=== PATIENT | male | born 1965 | race Hispanic/Latino ===

== ENCOUNTER 2021-11-22 11:00 | Day surgery (SDC) | payer MEDICARE ==
[2021-11-16 14:10] LABS: Hematocrit 40.8 % (35.5-45.6); Hemoglobin 13.6 gm/dl (11.8-15.2); Mean Corpuscular HGB Conc 33 % (32-34); Mean Corpuscular Volume 96 fl (84-94); Platelet Count 415 K/mm3 (140-440); Red Blood Count 4.24 M/mm3 (3.65-5.03); Red Cell Distribution Width 13.9 % (13.2-15.2)
--- NOTE | 2021-11-16 14:26 | Anesthesia Consultation ---
Anesthesia Consult and Med Hx Date of service: 11/22/21 - Airway Anesthetic Teeth Evaluation: Dentures, Edentulous ROM Head & Neck: Adequate (Had cervical fusions; good ROM) Mental/Hyoid Distance: Adequate Mallampati Class: Class III Intubation Access Assessment: Probably Good - Pre-Operative Health Status ASA Pre-Surgery Classification: ASA3 Proposed Anesthetic Plan: General Nerve Block: TAP - Pulmonary Hx Smoking: Yes Hx Respiratory Symptoms: Yes SOB: Yes COPD: Yes (USES O2 3L/MIN) Home Oxygen Therapy: Yes Hx Pneumonia: Yes Hx Sleep Apnea: Yes - Cardiovascular System Hx Hypertension: Yes Hx Heart Attack/AMI: No (Pt reports negative NST two years ago) - Central Nervous System Hx Seizures: Yes CVA: Yes (TIA 2011) Hx Psychiatric Problems: Yes (Chronic pain; depression) - Gastrointestinal Hx Gastroesophageal Reflux Disease: Yes (Occasional) - Endocrine Hx Liver Disease: Yes (Fatty liver) Hx Non-Insulin Dependent Diabetes: Yes Hx Thyroid Disease: Yes Hx Hypothyroidism: Yes - Hematic Hx Anemia: No - Other Systems Hx Alcohol Use: No Hx Substance Use: No Hx Cancer: No - Additional Comments Anesthesia Medical History Comments: Lupus. Recently had left shoulder surgery and is still in a sling. Medical records on chart-reviewed
[2021-11-16 14:33] LABS: Albumin 4.5 g/dL (3.9-5)
[~2021-11-22 11:00] MED LIST: ACETAMINOPHEN 500 MG TAB PO SCH; CELECOXIB 200 MG CAP PO SCH; LACTATED RINGERS 1,000 ML IV SCH; MAGNESIUM OXIDE 400 MG TAB PO SCH; MIDAZOLAM 2 MG/2 ML INJ IV NR; fentaNYL 100 MCG/2 ML INJ IV SCH
[2021-11-22] MEDS ORDERED: dexAMETHasone 4 MG/ML VIAL ONE (11:33)
[2021-11-22] MEDS ORDERED: BUPIVACAINE-EPINEPHRINE/PF 0.25%-1:200,000 (30 ML) VIAL INFILTRATI ONE ×2 (11:33→12:55)
[2021-11-22] MEDS ORDERED: HYDROmorphone 0.5 MG/0.5 ML INJ IV PRN ×2 (12:00→15:00)
[2021-11-22] MEDS ORDERED: oxyCODONE /ACETAMINOPHEN 5-325MG TAB PO PRN ×2 (12:00→15:00)
[2021-11-22] MEDS ORDERED: ONDANSETRON 4 MG/2 ML INJ IV PRN (12:00)
[2021-11-22] MEDS ORDERED: ceFAZolin/STERILE WATER 2 GM/20 ML SYRINGE IV SCH (12:40)
[2021-11-22] MEDS ORDERED: HEPARIN 5,000 UNIT/1 ML VIAL SUB-Q SCH (12:40)
[2021-11-22] MEDS ORDERED: HEPARIN 5,000 UNIT/1 ML VIAL ONE (12:41)
[2021-11-22] MEDS ORDERED: ceFAZolin/Water 2 GM/20 ML 2 GM/20 ML SYRINGE IV ONE (12:42)
[2021-11-22] MEDS ORDERED: fentaNYL 100 MCG/2 ML INJ ONE (12:56)
[2021-11-22] MEDS ORDERED: propofoL 200 MG/20 ML VIAL IV ONE (12:56)
[2021-11-22] MEDS ORDERED: LIDOCAINE MPF (2%) 20 MG/1 ML VIAL 5 ML ONE (12:57)
[2021-11-22] MEDS ORDERED: ROCURONIUM 50 MG/5 ML INJ IV ONE ×2 (12:59→13:33)
[2021-11-22] MEDS ORDERED: ONDANSETRON 4 MG/2 ML INJ ONE (13:33)
[2021-11-22] MEDS ORDERED: dexAMETHasone 20 MG/5 ML VIAL ONE (13:33)
[2021-11-22] MEDS ORDERED: SODIUM CHLORIDE 0.9% IRR 1,000 ML BOTTLE IR ONE (13:50)
--- NOTE | 2021-11-22 13:52 | Anesthesia Day of Surgery ---
Anesthesia Day of Surgery - Day of Surgery Patient Examined: Yes Patient H&P Reviewed: Yes Patient is NPO: Yes
[2021-11-22] MEDS ORDERED: NEOSTIGMINE 10MG/10 ML INJ MDV ONE (14:09)
[2021-11-22] MEDS ORDERED: GLYCOPYRROLATE 0.4 MG/2 ML INJ ONE (14:09)
--- NOTE | 2021-11-22 14:51 | Procedure Note ---
Date of procedure: 11/22/21 Pre-op diagnosis: Recurrent ventral hernia Post-op diagnosis: same Procedure: Open repair of recurrent ventral hernia with mesh Description of procedure: Pt was placed supine on the OR table. GETA was administered. Abdomen was prepped and draped. A small incision was made over the palpable hernia. The hernia sac was immediately identified and was dissected free of SQ fat down to it's fascial margin. The sac was entered and contained incarcerated omentum. The omentum was freed from the sac and was reduced back into the peritoneal cavity. A medium piece of Ventralex mesh was appropriately positioned deep to the fascia. The mesh was simultaneously secured to the fascia and the fascia approximated with several interrupted sutures of 0-Ethibond. SQ tissue was irrigated with warm water. SQ tissue was approximated with a running 3-0 Vicryl. Skin was approximated with a running subcuticular 4-0 Monocryl. Skin glue was applied. Pt was extubated in the OR. Pt tolerated the procedure well. Pt was taken to PACU in stable condition. Anesthesia: GETA Surgeon: DARIAN AMARO Estimated blood loss: minimal Pathology: none Specimen disposition: discarded Condition: stable Disposition: PACU
--- NOTE | 2021-11-22 16:19 | Post Anesthesia Evaluation ---
- Post Anesthesia Evaluation Patient Participated: Yes Airway Patent: Yes Stable Respiratory Function: Yes Nausea/Vomiting: No Temp > 96.8F: Yes Pain Manageable: Yes Adequeate Hydration: Yes Anesthesia Complications: No
[2021-11-22 16:26] VITALS: BP 126/86
== END 2021-11-22 15:43 | disposition home or self-care (01) ==
LOC: OR 11:00
PROVIDERS: ATTEND Surgery
DX: K43.0 Incisional hernia with obstruction, without gangrene (principal); I10 Essential (primary) hypertension; J44.9 Chronic obstructive pulmonary disease, unspecified; G47.30 Sleep apnea, unspecified; K21.9 Gastro-esophageal reflux disease without esophagitis; M19.90 Unspecified osteoarthritis, unspecified site; E11.9 Type 2 diabetes mellitus without complications; E03.9 Hypothyroidism, unspecified; F32.9 Major depressive disorder, single episode, unspecified; Z88.8 Allergy status to other drugs, medicaments and biological substances; Z20.822 Contact with and (suspected) exposure to COVID-19; Z91.041 Radiographic dye allergy status; Z79.899 Other long term (current) drug therapy; Z79.84 Long term (current) use of oral hypoglycemic drugs; Z90.49 Acquired absence of other specified parts of digestive tract; Z96.651 Presence of right artificial knee joint; Z98.890 Other specified postprocedural states
CPT/HCPCS: 36415; 49566; 49568; 64488; 80053; 82962; 85027; C1781; J0690; J1100; J1644; J1815; J2250; J2405; J2704; J2710; J3010; J3490; J7120; U0003; 64450

== ENCOUNTER 2022-02-01 06:07 | Inpatient (IN) | payer MEDICARE ==
[~2022-02-01 06:07] MED LIST changes: -ACETAMINOPHEN 500 MG TAB PO SCH; -CELECOXIB 200 MG CAP PO SCH; -MAGNESIUM OXIDE 400 MG TAB PO SCH; +MELOXICAM 7.5 MG TAB PO SCH; +PREGABALIN 25 MG CAP PO SCH; +ceFAZolin/STERILE WATER 2 GM/20 ML SYRINGE IV SCH; +ceFAZolin/Water 2 GM/20 ML 2 GM/20 ML SYRINGE IV ONE; +fentaNYL 100 MCG/2 ML INJ IV PRN; -fentaNYL 100 MCG/2 ML INJ IV SCH
--- NOTE | 2022-02-01 07:28 | Anesthesia Consultation ---
Anesthesia Consult and Med Hx Date of service: 02/01/22 - Airway Anesthetic Teeth Evaluation: Dentures ROM Head & Neck: Adequate Mental/Hyoid Distance: Adequate Mallampati Class: Class III Intubation Access Assessment: Probably Good (previous easy intubations) - Pulmonary Exam CTA: Yes - Cardiac Exam Cardiac Exam: RRR - Pre-Operative Health Status ASA Pre-Surgery Classification: ASA4 Proposed Anesthetic Plan: General (discussed GA vs neuraxial; patient requests GA) Nerve Block: adductor canal - Pulmonary Hx Smoking: Yes (quit 1yr) SOB: Yes (chronic PALACIOS; unchanges) COPD: Yes Home Oxygen Therapy: Yes (3L/min w/ activity) Hx Sleep Apnea: Yes (+ CPAP) - Cardiovascular System Hx Hypertension: Yes Hx Heart Attack/AMI: No Hx Percutaneous Transluminal Coronary Angioplasty (PTCA): No - Central Nervous System CVA: Yes (TIA 2011) Hx Back Pain: Yes (chronic opioid use for neck and back pain) Hx Psychiatric Problems: Yes (depression) - Endocrine Hx Renal Disease: No Hx Liver Disease: No Hx Non-Insulin Dependent Diabetes: Yes Hx Hypothyroidism: Yes - Hematic Hx Anemia: No - Additional Comments Anesthesia Medical History Comments: No hx anesthetic complications. Preop medical and pulmonary evals on chart reviewed. H/H 13/40, plt 300, normal renal function.
[2022-02-01] MEDS ORDERED: ONDANSETRON 4 MG/2 ML INJ IV PRN ×2 (07:29→09:00)
--- NOTE | 2022-02-01 07:29 | Anesthesia Day of Surgery ---
Anesthesia Day of Surgery - Day of Surgery Patient Examined: Yes Patient H&P Reviewed: Yes Patient is NPO: Yes
[2022-02-01] MEDS ORDERED: dexAMETHasone 4 MG/ML VIAL ONE (07:30)
[2022-02-01] MEDS ORDERED: BUPIVACAINE-EPINEPHRINE/PF 0.25%-1:200,000 (30 ML) VIAL INFILTRATI ONE (07:30)
[2022-02-01] MEDS ORDERED: ePHEDrine SULFATE 50 MG/1 ML INJ ONE (07:31)
[2022-02-01] MEDS ORDERED: HYDROmorphone 1 MG/1 ML INJ ONE (07:31)
[2022-02-01] MEDS ORDERED: dexAMETHasone 20 MG/5 ML VIAL ONE (07:31)
[2022-02-01] MEDS ORDERED: ROCURONIUM 50 MG/5 ML INJ IV ONE (07:31)
[2022-02-01] MEDS ORDERED: propofoL 200 MG/20 ML VIAL IV ONE ×2 (07:31→09:22)
[2022-02-01] MEDS ORDERED: SUCCINYLCHOLINE CHLORIDE 200 MG/10 ML INJ MDV ONE (07:31)
[2022-02-01] MEDS ORDERED: TRANEXAMIC ACID 1,000 MG/10 ML ONE (07:43)
[2022-02-01] MEDS ORDERED: BUPIVACAINE/PF (0.5%) 5 MG/1 ML 30 ML VIAL INFILTRATI ONE ×2 (07:43→09:30)
[2022-02-01] MEDS ORDERED: methylPREDNISolone ACETATE 40 MG/1 ML INJ ONE (07:43)
[2022-02-01] MEDS ORDERED: NEOMY 40 MG/POLYMYXIN B 200,000 UNITS/ML (GU) AMPULE IR ONE ×2 (07:44→09:43)
[2022-02-01] MEDS ORDERED: MORPHINE 10 MG/1 ML INJ ONE (07:44)
[2022-02-01] MEDS ORDERED: SODIUM CHLORIDE 0.9% 100 ML ONE (07:44)
[2022-02-01] MEDS ORDERED: NALOXONE 0.4 MG/1 ML INJ IV PRN (08:00)
[2022-02-01] MEDS ORDERED: VANCOMYCIN 1000 MG INJ ONE (08:01)
[2022-02-01] MEDS ORDERED: SODIUM CHLORIDE 0.9% 50 ML ONE (08:01)
[2022-02-01] MEDS ORDERED: fentaNYL 100 MCG/2 ML INJ ONE ×2 (08:59→11:18)
[2022-02-01] MEDS ORDERED: SODIUM CHLORIDE 0.9% 1000 ML 1,000 ML IV SCH (09:00)
[2022-02-01] MEDS ORDERED: oxyCODONE 5 MG TAB PO PRN ×2 (09:00)
[2022-02-01] MEDS ORDERED: SODIUM CHLORIDE P/F VIAL 10 ML 0 ML ONE (09:04)
[2022-02-01] MEDS ORDERED: SODIUM CHLORIDE 0.9% IRR 1,500 ML BOTTLE IR ONE (09:27)
[2022-02-01] MEDS ORDERED: VANCOMYCIN 1,000 MG/20 ML IV ONE (09:28)
[2022-02-01] MEDS ORDERED: SODIUM CHLORIDE 0.9% 500 ML IVPB IV ONE (09:29)
[2022-02-01] MEDS ORDERED: methylPREDNISolone ACETATE 40 MG/1 ML INJ INTRA-ARTI ONE (09:31)
[2022-02-01] MEDS ORDERED: MORPHINE 10 MG/1 ML INJ IM ONE (09:32)
[2022-02-01] MEDS ORDERED: SODIUM CHLORIDE 0.9% IRRIG SOLN 2000 ML IR ONE (09:42)
[2022-02-01] MEDS ORDERED: MULTIVITAMINS ,THERAPEUTIC TAB PO SCH (10:00)
--- NOTE | 2022-02-01 10:48 | Post Operative Note ---
Date of procedure: 02/01/22 Pre-op diagnosis: Left knee osteoarthritis Post-op diagnosis: same Findings: left knee osteoarthritis Procedure: left total knee replacement Anesthesia: GETA Surgeon: PRINCESS JASSO [employer] Research: [employer] Estimated blood loss: minimal Pathology: none Condition: stable Disposition: PACU
--- NOTE | 2022-02-01 10:55 | Operative Report ---
Operative Report Operative Report: Patient Name: Meño So Date of : 1965 Date of Surgery: 02/01/2022 Pre-Operative Diagnosis: Left knee osteoarthritis Post-Operative Diagnosis: Left knee osteoarthritis Procedure: Left total knee replacement Surgeon: Jona Mayfield DO Assistants: Marce Chacko PA-C EBL: 50cc Complications: None Anesthesia: GETA, plus regional nerve block for post-operative pain control Implants: Medacta GMK Sphere size 4+ femur, size 4 tibia, 11 mm CS polyethylene insert, size 2 patella Tourniquet Time: 79 minutes Indications: This is a 56-year-old male who presented with worsening left knee pain over the last 2-3 years. Pain is worse with weight bearing. Patient had difficulty ambulating, using stairs because of the pain. Patient had tried nonoperative management including physical therapy/home exercises, joint injections, anti-inflammatory medications, activity modifications, ambulating with assistive devices without any lasting pain relief. Patient elected to undergo left total knee replacement. Patient's past medical history significant for COPD (on home oxygen), chronic pain (on oxycodone 20mg Q6 hours, MS Contin 60mg Q12 hours), hypertension. Patient also has a history of right medial unicondylar knee arthroplasty. The patient was met in the preoperative holding area where the risk, benefits, alternatives to surgery were explained to the patient in detail. Risks include but are not limited to infection, bleeding, neurovascular injury, soft tissue injury, infection, need for further surgery, need for revision surgery, need for blood transfusion, fracture, dislocation, pain, stiffness, loss of limb, loss of life. Informed consent was obtained after all questions were thoroughly answered. Procedure: Patient was placed supine on the operating room table and all bony prominences were well-padded. The left lower extremity was prepped and draped in the usual sterile fashion. A timeout was performed by all members of the operating room team. An Esmarch bandage was used to wrap the left lower extremity and the tourniquet was inflated to 250 mmHg. A midline incision was made over the left knee. Sharp dissection was used to go through the skin and the subcutaneous fat. Medial and lateral fasciocutaneous flaps were then elevated. Using electrocautery a medial parapatellar arthrotomy was then performed. Upon inspection of the knee joint there was severe osteoarthritis in the medial, lateral and patellofemoral compartments. An anteromedial release was performed on the proximal tibia anterior to the midsagittal plane. The ACL and the PCL as well as the meniscal remnants were then removed. An opening reamer was then used to open up the distal femoral canal. An intramedullary aubrie was placed approximately 10 cm up the femoral canal. The distal cutting jig and block were then secured to the distal femur. Using an oscillating saw the distal femoral resection was then performed. Using calipers we measured the thickness of the cut distal medial and lateral femoral condyles. Taking into account cartilage loss and the saw kerf we made sure that the amount of resection equaled the thickness of our implant. The distal cutting block was removed. A femoral sizer was used to measure the size of the femoral implant. Once we had the ap propriate size, we secured the 4-in-1 cutting block to the distal femur using 2 bone screws. We then made our medial and lateral posterior femoral condylar cuts. Again we used a caliper to measure the thickness of our cuts while taking into account cartilage loss and saw kerf, thickness equaled that of the implant. Next, using the oscillating saw to make the anterior femoral cut as well as the anterior and posterior chamfer cuts. Next we turned our attention to the proximal tibia. We then secured the extramedullary tibial cutting jig to the leg. We then matched the alatna slope of the proximal tibia with the guide. We also made sure that the tibial cutting guide was parallel to the articular surface taking into account any cartilage wear and bone loss. Using the 8 mm stylus at the base of the tibial spines on the medial and lateral side we then adjusted the tibial guide to the proper resection depth. We secured the proximal tibial cutting jig to the proximal tibial bone using 3 pins. An oscillating saw was then used to make our proximal tibial resection. Next using a laminar plier worker the knee joint was opened up in 90 degrees of flexion. Using a 1 inch curved osteotome, the posterior osteophytes were removed from both the posterior medial distal femur as well as posterior lateral distal femur. The meniscal remnants were then removed. Next the tibia was anteriorly subluxed and a size 4 tibial guide was then placed in the appropriate amount of rotation parallel to the rotational axis of the tibia of the alatna knee. Tibial guide was secured to the proximal tibia using 2 pins. The tibia was then drilled and punched in the proper rotation. Trial components were then placed on the tibia as well as the femur. The knee was taken through the full range of motion and found to be stable. The knee was able to be flexed to 135 degrees and extension to 0 degrees. There is no varus or valgus laxity with the knee in full extension. The knee was flexed to 90 de grees and again varus and valgus stress was applied. There was no gapping of the medial side with the knee 90 degrees of flexion, the lateral side had approximately 3 mm of gapping which was consistent with a kinematics of the alatna knee joint. The patella was also tracking well within the trochlear groove with no lateral tilt or subluxation. The patella was then everted and cut down to 14 mm using the patellar cutting guide. 3 holes were drilled into the patella and the trial button was placed. Again the knee was taken through the full range of motion and was found to have good patella tracking. At this point we were satisfied with the overall range of motion the stability of the patella tracking as well as the knee. All trials were then removed. The real components were opened. The knee was copiously irrigated with antibiotic saline and then dried. A local anesthetic cocktail was then injected into the posterior capsule as well as the surrounding deep tissues of the knee joint. 2 bags of cement were mixed. Once the cement was in a doughy state the real components were cemented into place starting with the tibia followed by the femur and then the patella. All excess cement was then removed using curettes from around the implants. Once the cement had completely hardened the knee was irrigated again with diluted Betadine mixed with normal saline. The knee was then copiously irrigated with normal saline using pulsatile lavage. The tourniquet was let down. There was no active bleeding. Electrocautery was used throughout the case to maintain meticulous hemostasis. The arthrotomy was then closed in flexion in a watertight fashion using #1 Vicryl suture in an interrupted fashion. The arthrotomy was then reinforced with a #1 stratafix PDS suture. The deep fascial layer was closed with 0 Vicryl. The subcutaneous layers were closed with 2-0 Vicryl and the subcuticular layer was closed with 3- 0 Monocryl. The wound was then covered with an occlusive dressing. The operative lower extremity was wrapped in an Isaac wrap from the foot all the way up to the proximal thigh. The sponge and needle count were correct in the case. The patient was then awakened by the anesthesia team and taken to the recovery room in stable condition. The patient's total knee arthroplasty was performed using a calipered kinematically aligned technique.
[2022-02-01] MEDS: HYDROmorphone 0.5 MG/0.5 ML INJ IV PRN ×2 (11:49→12:15)
--- NOTE | 2022-02-01 11:54 | XRay Report ---
LEFT KNEE 2 VIEWS INDICATION / CLINICAL INFORMATION: Status post left total knee replacement. COMPARISON: None available. FINDINGS: There is a knee prosthesis with postsurgical gas in the soft tissues. There is no evidence of acute f racture or subluxation. IMPRESSION: No complication of surgery is seen. Signer Name: Sen Gonzalez MD Signed: 02/01/2022 11:50 AM Workstation Name: [id number]
[2022-02-01] MEDS ORDERED: HYDROmorphone 0.5 MG/0.5 ML INJ IV NR (12:25)
[2022-02-01] MEDS: KETOROLAC 30 MG/1 ML INJ IV SCH (15:28)
[2022-02-01] MEDS: ceFAZolin/NS 1 GM/50 ML 1 GM/50 ML BAG IV SCH (17:16)
[2022-02-01] MEDS: MORPHINE 4 MG/1 ML INJ IV PRN ×2 (17:17→21:44)
[2022-02-01] MEDS: ACETAMINOPHEN 325 MG TAB PO SCH (17:17)
[2022-02-01] MEDS: DOCUSATE SODIUM 100 MG CAP PO SCH (21:44)
[2022-02-02] MEDS: ACETAMINOPHEN 325 MG TAB PO SCH ×4 (00:27→12:03)
[2022-02-02] MEDS: KETOROLAC 30 MG/1 ML INJ IV SCH (00:33)
[2022-02-02] MEDS ORDERED: KETOROLAC 30 MG/1 ML INJ IV SCH (01:30)
[2022-02-02] MEDS: ceFAZolin/NS 1 GM/50 ML 1 GM/50 ML BAG IV SCH (01:59)
[2022-02-02] MEDS: MORPHINE 4 MG/1 ML INJ IV PRN ×3 (02:00→12:57)
[2022-02-02] MEDS ORDERED: oxyCODONE ER 20 MG TAB PO SCH (06:00)
[2022-02-02 06:35] LABS: Hematocrit 34.4 % (35.5-45.6); Hemoglobin 11.6 gm/dl (11.8-15.2)
[2022-02-02 07:01] LABS: BUN/Creatinine Ratio 14; Blood Urea Nitrogen 15 mg/dL (9-20); Calcium 8.5 mg/dL (8.4-10.2); Hemolysis Index 5
[2022-02-02] MEDS ORDERED: ALBUTEROL 8.5 GM MDI INHALATION IH PRN (08:59)
--- NOTE | 2022-02-02 08:59 | Consultation ---
History of Present Illness - Reason for Consult Consult date: 02/02/22 Medical management Requesting physician: PRINCESS JASSO - History of Present Illness S/p left TKA. Postop patient doing well. No complications. No shortness of breath. No chest pain. No fever. Past History Past Medical History: COPD, diabetes, hypertension, hyperlipidemia, hypothyroidism, other (Chronic pain, generalized anxiety disorder, BPH) Past Surgical History: total knee replacement (Left) Social history: lives with family, full code Family history: diabetes, hypertension Medications and Allergies Allergies Allergy/AdvReac Type Severity Reaction Status Date / Time droperidol Allergy Seizure Verified 01/31/22 12:50 nalbuphine [From Nubain] Allergy Seizure Verified 11/10/21 17:42 promethazine [From Phenergan] Allergy Seizure Verified 11/10/21 17:42 tramadol Allergy Itching Verified 01/31/22 12:50 IVP DYE AdvReac Rash Uncoded 01/31/22 12:50 SILK TAPE AdvReac BLISTERS Uncoded 01/31/22 12:50 Home Medications Medication Instructions Recorded Confirmed Last Taken Type ALPRAZolam [Xanax TAB] 2 mg PO TID 11/10/21 02/01/22 02/01/22 05:00 History AtorvaSTATin [Lipitor] 20 mg PO QHS 11/10/21 02/01/22 01/31/22 21:00 History Fenofibrate [Tricor] 145 mg PO QDAY 11/10/21 02/01/22 01/31/22 09:00 History Levothyroxine [Synthroid] 150 mcg PO QAM 11/10/21 02/01/22 01/31/22 09:00 History Metformin HCl [metFORMIN] 1,000 mg PO BID 11/10/21 02/01/22 01/31/22 18:00 H istory Mirtazapine [Remeron 45mg TAB] 45 mg PO HS 11/10/21 02/01/22 01/31/22 21:00 History Morphine ER [Ms Contin ER] 120 mg PO BID 11/10/21 02/01/22 02/01/22 04:00 History Oxycodone HCl [oxyCODONE] 20 mg PO Q3H PRN 11/10/21 02/01/22 02/01/22 04:00 History Oxycodone HCl/Acetaminophen 1 each PO Q3HR PRN 11/10/21 01/31/22 Unknown History [Percocet 10/325 mg] Pantoprazole [Protonix] 40 mg PO QDAY 11/10/21 02/01/22 01/31/22 21:00 History Tamsulosin [Flomax] 0.4 mg PO QDAY 11/10/21 02/01/22 01/31/22 21:00 History Temazepam [Restoril] 15 mg PO QHS 11/10/21 02/01/22 01/31/22 21:00 History Varenicline (Nf) [Chantix (Nf)] 1 mg PO BID 11/10/21 02/01/22 01/31/22 21:00 History lisinopriL [Lisinopril] 20 mg PO DAILY 11/10/21 02/01/22 01/31/22 09:00 History risperiDONE [RisperDAL] 2 mg PO HS 11/10/21 02/01/22 01/31/22 21:00 History traZODone [Desyrel] 150 mg PO QHS 11/10/21 02/01/22 01/31/22 21:00 History Umeclidinium Brm/Vilanterol Tr 1 puff IH DAILY 11/16/21 02/01/22 02/01/22 04:00 History [Anoro Ellipta 62.5-25 Mcg INH] Albuterol Sulfate [Proventil Hfa] 2 puff IH PRN PRN 01/31/22 01/31/22 Unknown History Aspirin [Vazalore] 325 mg PO BID 01/31/22 02/01/22 01/25/22 09:00 History tiZANidine [Zanaflex 4mg TAB] 4 mg PO QID 01/31/22 02/01/22 01/31/22 21:00 History Active Meds: Active Medications Acetaminophen (Acetaminophen 325 Mg Tab) 650 mg PO Q6H [facility] Last Admin: 02/02/22 05:07 Dose: 650 mg Docusate Sodium (Docusate Sodium 100 Mg Cap) 100 mg PO BID [facility] Last Admin: 02/01/22 21:44 Dose: 100 mg Enoxaparin Sodium (Enoxaparin 40 Mg/0.4 Ml Inj) 40 mg SUB-Q QDAY [facility] Sodium Chloride (Nacl 0.9% 1000 Ml) 1,000 mls @ 75 mls/hr IV DIRECT [facility] Last Admin: 02/01/22 15:28 Dose: 75 mls/hr Morphine Sulfate (Morphine 4 Mg/1 Ml Inj) 4 mg IV Q4H PRN PRN Reason: Pain , Severe (7-10) Last Admin: 02/02/22 06:48 Dose: 4 mg Multivitamins (Multivitamins ,Therapeutic Tab) 1 each PO QDAY [facility] Naloxone HCl (Naloxone 0.4 Mg/1 Ml Inj) 0.1 mg IV Q2MIN PRN PRN Reason: Res Rate </= 8 or 02 SAT < 92% Ondansetron HCl (Ondansetron 4 Mg/2 Ml Inj) 4 mg IV Q8H PRN PRN Reason: Nausea And Vomiting Oxycodone HCl (Oxycodone Er 20 Mg Tab) 60 mg PO Q12H [facility] Last Admin: 02/02/22 05:43 Dose: 60 mg Oxycodone HCl (Oxycodone 5 Mg Tab) 10 mg PO Q4H PRN PRN Reason: Pain, Moderate (4-6) Oxycodone HCl (Oxycodone 5 Mg Tab) 20 mg PO Q4H PRN PRN Reason: Pain , Severe (7-10) Sodium Chloride (Sodium Chloride 0.9% 10 Ml Flush Syringe) 10 ml IV PRN PRN PRN Reason: LINE FLUSH Review of Systems All systems: negative Exam - Constitutional Vitals: Temp Pulse Resp BP Pulse Ox 98.8 F 82 18 142/88 96 02/02/22 05:00 02/02/22 05:00 02/02/22 05:00 02/02/22 05:00 02/02/22 08:37 General appearance: Present: no acute distress, well-nourished - EENT Eyes: Present: PERRL ENT: hearing intact, clear oral mucosa - Neck Neck: Present: supple, normal ROM - Respiratory Respiratory effort: normal Respiratory: bilateral: CTA - Cardiovascular Heart rate: 78 Rhythm: regular Heart Sounds: Present: S1 & S2. Absent: rub, click - Extremities Extremities: pulses symmetrical, No edema Peripheral Pulses: within normal limits - Abdominal General gastrointestinal: Present: soft, non-tender, non-distended, normal bowel sounds Male genitourinary: Present: normal - Integumentary Integumentary: Present: clear, warm, dry - Musculoskeletal Musculoskeletal: gait normal, strength equal bilaterally - Psychiatric Psychiatric: appropriate mood/affect, intact judgment & insight - Neurologic Neurologic: CNII-XII intact, moves all extremities Results - Labs CBC & Chem 7: 02/02/22 05:53 02/02/22 05:53 Labs: Abnormal lab results 02/01/22 02/01/22 02/01/22 Range/Units 11:45 16:32 21:41 Hgb (11.8-15.2) gm/dl Hct (35.5-45.6) % Sodium (137-145) mmol/L Glucose (75-100) mg/dL POC Glucose 165 H 254 H 182 H (70-105) mg/dL 02/02/22 02/02/22 Range/Units 05:53 05:53 Hgb 11.6 L (11.8-15.2) gm/dl Hct 34.4 L (35.5-45.6) % Sodium 134 L (137-145) mmol/L Glucose 212 H (75-100) mg/dL POC Glucose (70-105) mg/dL Assessment and Plan - Patient Problems (1) Hypertension Current Visit: Yes Status: Chronic Qualifiers: Hypertension type: primary hypertension Qualified Code(s): I10 - Essential (primary) hypertension Plan to address problem: Continue antihypertensives and adjust medications as necessary (2) Hx of total knee arthroplasty Current Visit: Yes Status: Acute Qualifiers: Laterality: left Qualified Code(s): Z96.652 - Presence of left artificial knee joint Plan to address problem: Patient had a left total knee arthroplasty. PT/OT. (3) Hypothyroidism Current Visit: Yes Status: Chronic Qualifiers: Hypothyroidism type: acquired Qualified Code(s): E03.9 - Hypothyroidism, unspecified Plan to address problem: Continue levothyroxine (4) T2DM (type 2 diabetes mellitus) Current Visit: Yes Status: Chronic Qualifiers: Diabetes mellitus ferry terminal agent insulin use: unspecified ferry terminal agent insulin use status Plan to address problem: Continue metformin and coverage (5) Chronic pain Current Visit: Yes Status: Chronic Qualifiers: Chronic pain type: chronic pain syndrome Qualified Code(s): G89.4 - Chronic pain syndrome Plan to address problem: Patient on multiple opioid analgesics Patient initiated only on morphine 120 mg twice a day Dilaudid as needed (6) BPH (benign prostatic hyperplasia) Current Visit: Yes Status: Chronic Qualifiers: Lower urinary tract symptom presence: symptoms present Plan to address problem: Continue Flomax (7) GERD (gastroesophageal reflux disease) Current Visit: Yes Status: Chronic Qualifiers: Esophagitis presence: without esophagitis Qualified Code(s): K21.9 - Gastro-esophageal reflux disease without esophagitis Plan to address problem: Continue PPIs (8) Hyperlipidemia Current Visit: Yes Status: Chronic Qualifiers: Hyperlipidemia type: mixed hyperlipidemia Qualified Code(s): E78.2 - Mixed hyperlipidemia Plan to address problem: Continue statins and fenofibrate (9) JUANJO (generalized anxiety disorder) Current Visit: Yes Status: Chronic Plan to address problem: Continue Xanax 2 mg 3 times daily (10) COPD (chronic obstructive pulmonary disease) Current Visit: Yes Status: Chronic Qualifiers: Chronic bronchitis type: unspecified Plan to address problem: Continue albuterol and Trelegy (11) DVT prophylaxis Current Visit: Yes Status: Acute Plan to address problem: Continue SCDs Continue aspirin (12) Advance care planning Current Visit: Yes Status: Acute Plan to address problem: Disease education conducted, care plan discussed, diagnosis discussed, prognosis discussed. Patient is full code. Patient acknowledges understanding and agreement with care plan. +30 minutes.
[2022-02-02] MEDS ORDERED: metFORMIN 500 MG TAB PO SCH (10:00)
[2022-02-02] MEDS ORDERED: ENOXAPARIN 40 MG/0.4 ML INJ SUB-Q SCH (10:00)
[2022-02-02] MEDS ORDERED: TAMSULOSIN 0.4 MG CAP PO SCH (10:00)
[2022-02-02] MEDS ORDERED: LISINOPRIL 20 MG TAB PO SCH (10:00)
[2022-02-02] MEDS ORDERED: NON-FORMULARY EACH (Metformin Hcl [Metformin] 1,000 MG Tablet) PO SCH (10:00)
[2022-02-02] MEDS ORDERED: PANTOPRAZOLE 40 MG TAB PO SCH (10:00)
[2022-02-02] MEDS ORDERED: FENOFIBRATE 145 MG TAB PO SCH (10:00)
[2022-02-02] MEDS ORDERED: LISINOPRIL 10 MG TAB PO SCH (10:00)
[2022-02-02] MEDS ORDERED: MORPHINE 60 MG PO SCH (10:00)
[2022-02-02] MEDS ORDERED: LEVOTHYROXINE 150 MCG TAB PO SCH (10:00)
[2022-02-02] MEDS: tiZANidine TAB 4 MG TAB PO SCH ×2 (10:15→13:00)
[2022-02-02] MEDS: DOCUSATE SODIUM 100 MG CAP PO SCH (10:15)
[2022-02-02 10:26] VITALS: BP 134/84
[2022-02-02] MEDS ORDERED: INSULIN LISPRO 100 UNIT/ML SUB-Q SCH (11:30)
[2022-02-02] MEDS ORDERED: ALBUTEROL 2.5 MG/3 ML NEBU IH PRN (12:00)
--- NOTE | 2022-02-02 12:50 | Progress Note ---
Assessment and Plan 56-year-old male status post left total knee replacement postop day #1. PMH: COPD - on home oxygen, diabetes, hypertension, hyperlipidemia, hypothyroidism, other (Chronic pain, generalized anxiety disorder, BPH) -Overall patient is doing well. Pain is controlled. -Continue current pain control regimen -Lovenox 40 mg subQ Qdaily -Weightbearing as tolerated left lower extremity -Continue physical therapy -Continue nasal cannula O2 -Acute blood loss anemia, expected from surgery-hemoglobin is 11.6 this morning. Vitals stable, patient is in symptomatic. Continue to monitor. - Continue oral diet -Appreciate medical consult for postoperative medical management. -Discharge plan to home today. Patient is already set up for home physical therapy. Patient has pain medication prescriptions at home from his pain management doctor. Subjective Date of service: 02/02/22 Principal diagnosis: Status post left total knee replacement Interval history: Patient seen and examined at bedside with present. Patient states he is doing well. Patient was able to get up and ambulate with physical therapy down the hallway. Patient states he is having pain in his knee but it is controlled when he takes the medicine. Patient is tolerating oral diet. Denies any nausea or vomiting. Denies any fevers or chills. No chest pain or shortness of br eath. No significant overnight events reported. Objective Vital signs: Vital Signs - 12hr 02/02/22 02/02/22 02/02/22 04:06 05:00 08:37 Temperature 98.8 F Pulse Rate 82 Respiratory 17 18 Rate Blood Pressure 142/88 Blood Pressure [Left] O2 Sat by Pulse 98 96 96 Oximetry 02/02/22 10:25 Temperature 98.7 F Pulse Rate 84 Respiratory 17 Rate Blood Pressure Blood Pressure 134/84 [Left] O2 Sat by Pulse 95 Oximetry Narrative Exam: No acute distress Breathing comfortably Abdomen soft, nontender Left lower extremity: Dressings are clean, dry, intact. Ankle plantarflexion, dorsiflexion, EHL motor function intact. L4-S1 sensation to light touch intact. Cap refill brisk. Incision: clean and dry Weight bearing status: full - Allied Health Allied health notes reviewed: PT - Labs CBC & BMP: 02/02/22 05:53 02/02/22 05:53 Labs: Abnormal lab results 02/01/22 02/01/22 02/01/22 Range/Units 11:45 16:32 21:41 Hgb (11.8-15.2) gm/dl Hct (35.5-45.6) % Sodium (137-145) mmol/L Glucose (75-100) mg/dL POC Glucose 165 H 254 H 182 H (70-105) mg/dL 02/02/22 02/02/22 Range/Units 05:53 05:53 Hgb 11.6 L (11.8-15.2) gm/dl Hct 34.4 L (35.5-45.6) % Sodium 134 L (137-145) mmol/L Glucose 212 H (75-100) mg/dL POC Glucose (70-105) mg/dL
--- NOTE | 2022-02-02 12:56 | Discharge Summary ---
Providers - Providers Date of Admission: 02/01/22 06:07 Date of discharge: 02/02/22 Attending physician: PRINCESS JASSO DO 02/01/22 07:42 Consult to Case Management [CONS] Routine Services Needed at Discharge: Physical Therapy Notified:: [facility] Physical Therapy Evaluation and Treat [CONS] Routine Comment: WBAT on bilateral LE Reason For Exam: post op therapy 02/01/22 10:40 Consult to Physician [CONS] Routine Comment: Consulting Provider: DERECK MATHUR Physician Instructions: post-op medical comanagement Reason For Exam: post-op medical management Primary care physician: DANIEL PERRIN Hospitalization Reason for admission: Acute care following surgery Condition: Stable Procedures: Left total knee replacement done on February 01, 2022 Hospital course: Patient was admitted for acute care following the left total knee replacement surgery. Patient has a past medical history significant for COPD, diabetes, hypertension, hyperlipidemia, hypothyroidism, other (Chronic pain, generalized anxiety disorder, BPH), history of DVTs. Patient was placed on high-dose pain medications including OxyContin 60 mg every 12, oxycodone 20 mg every 4 hours as needed, morphine 4 mg IV. Patient's pain was controlled with this pain regimen. Patient was started on Lovenox 40 mg subcu on postop day #1 DVT prophylaxis. Patient tolerated oral diet. Patient had no fevers during his hospital stay. Patient was able to work with physical therapy on postop day 0 and #1 and was gradually cleared for safe discharge to home. Patient had acute blood loss anemia, hemoglobin was 11.6 on postop day #1. This was expected after major surgery. Patient's vital stable, patient was asymptomatic. Continue to monitor. Hospitalist medicine consult was placed for postoperative medical management. Patient is on home oxygen for his COPD, he was kept on nasal cannula at 4 L in the hospital. Disposition: 01 HOME / SELF CARE / HOMELESS Final Discharge Diagnosis (Prints w/discharge instructions): Status post left total knee replacement for left knee osteoarthritis, COPD, diabetes, hypertension, hyperlipidemia, hypothyroidism, other (Chronic pain, generalized anxiety disorder, BPH, history of DVTs) Core Measure Documentation - Palliative Care Palliative Care/ Comfort Measures: Not Applicable - Core Measures Any of the following diagnoses?: history only (History of DVT) Exam - Physical Exam Narrative exam: No acute distress Breathing comfortably Abdomen soft, nontender Left lower extremity: Dressings are clean, dry, intact. Ankle plantarflexion, dorsiflexion, EHL motor function intact. L4-S1 sensation to light touch intact. Cap refill brisk. - Constitutional Vitals: Temp Pulse Resp BP Pulse Ox 98.7 F 84 17 134/84 95 02/02/22 10:25 02/02/22 10:25 02/02/22 10:25 02/02/22 10:25 02/02/22 10:25 General appearance: Present: no acute distress - EENT Eyes: Present: EOM intact ENT: hearing intact - Neck Neck: Present: supple - Respiratory Respiratory effort: normal - Cardiovascular Heart Sounds: Present: S1 & S2 - Extremities Extremities: no ischemia, pulses intact Extremity abnormal: tenderness Peripheral Pulses: within normal limits - Abdominal General gastrointestinal: Present: soft, non-tender Male genitourinary: Present: deferred - Rectal Rectal Exam: deferred - Integumentary Integumentary: Present: clear, warm, dry - Musculoskeletal Musculoskeletal: left sided weakness - Psychiatric Psychiatric: appropriate mood/affect, intact judgment & insight, memory intact - Neurologic Neurologic: moves all extremities - Allied Health Allied health notes reviewed: nursing, PT Plan Activity: advance as tolerated, no driving until cleared by PCP, fall precautions Weight Bearing Status: Weight Bear as Tolerated Diet: diabetic Wound: keep clean and dry, per your surgeon's advice Special Instructions: smoking cessation, no heavy lifting, physical therapy, h ome oxygen via Durable Medical Equipment Needed Upon Discharge: Walker-Rolling Additional Instructions: Refer to printed discharge instructions given by surgeon Follow up with: DANIEL PERRIN MD [Primary Care Provider] - 7 Days PRINCESS JASSO DO [Staff Physician] - 14 Days
[2022-02-02] MEDS ORDERED: NON-FORMULARY EACH (Alprazolam [Xanax Tab] 2 MG Tablet) PO SCH (14:00)
[2022-02-02] MEDS ORDERED: ALPRAZolam 1 MG TAB PO SCH (14:00)
[2022-02-02] MEDS ORDERED: NON-FORMULARY EACH (Mirtazapine [Remeron 45mg Tab] 45 MG Tab.Rapdis) PO SCH (22:00)
[2022-02-02] MEDS ORDERED: NON-FORMULARY EACH (Risperidone [Risperdal] 2 MG Tablet) PO SCH (22:00)
[2022-02-02] MEDS ORDERED: MIRTAZAPINE 30 MG TAB PO SCH (22:00)
[2022-02-02] MEDS ORDERED: MIRTAZAPINE 15 MG TAB PO SCH (22:00)
[2022-02-02] MEDS ORDERED: traZODone 100 MG TAB PO SCH (22:00)
[2022-02-02] MEDS ORDERED: TEMAZEPAM 15 MG CAP PO SCH (22:00)
[2022-02-02] MEDS ORDERED: risperiDONE 1 MG TAB PO SCH (22:00)
== END 2022-02-02 16:23 | disposition home health service (06) | DRG 470 ==
LOC: 3A 06:07
PROVIDERS: ADMIT Orthopaedic Surgery; ATTEND Orthopaedic Surgery
PROC: 0SRD0J9 Replacement of Left Knee Joint with Synthetic Substitute, Cemented, Open Approach (ICD-10-PCS; principal; 2022-02-01)
PROC: 5A09357 Assistance with Respiratory Ventilation, Less than 24 Consecutive Hours, Continuous Positive Airway Pressure (ICD-10-PCS; 2022-02-01)
DX: M17.12 Unilateral primary osteoarthritis, left knee (principal); Z20.822 Contact with and (suspected) exposure to COVID-19; J44.9 Chronic obstructive pulmonary disease, unspecified; I10 Essential (primary) hypertension; F32.A Depression, unspecified; E11.9 Type 2 diabetes mellitus without complications; E03.9 Hypothyroidism, unspecified; F41.1 Generalized anxiety disorder; N40.0 Benign prostatic hyperplasia without lower urinary tract symptoms; G89.4 Chronic pain syndrome; K21.9 Gastro-esophageal reflux disease without esophagitis; E78.2 Mixed hyperlipidemia; Z86.718 Personal history of other venous thrombosis and embolism; Z87.891 Personal history of nicotine dependence; Z83.3 Family history of diabetes mellitus; Z82.49 Family history of ischemic heart disease and other diseases of the circulatory system; Z79.82 Long term (current) use of aspirin; Z79.84 Long term (current) use of oral hypoglycemic drugs; Z88.5 Allergy status to narcotic agent; Z88.8 Allergy status to other drugs, medicaments and biological substances; Z79.899 Other long term (current) drug therapy
CPT/HCPCS: 36415; 64450; 80048; 82962; 85014; 85018; 88304; 88311; 94760; G0378; J3490; C1713; C1776; J0330; J0690; J0696; J1030; J1100; J1170; J1650; J1885; J2250; J2270; J2704; J3010; J3370; J7030; J7040; J7120; U0003